=== PATIENT | female | born 1985 | race Two or more races ===

== ENCOUNTER 2017-05-06 12:17 | Inpatient (IN) | payer OTHER ==
[~2017-05-06] VITALS: Ht 162.6 cm; Wt 76.7 kg
[2017-05-06] MEDS ORDERED: PRENATAL TABLE1 EAC3 PO (14:17)
== END 2017-05-08 09:41 | DRG 782 ==
LOC: LDR 12:17 → OB/GYN 16:47
PROC: 4A1HXCZ Monitoring of Products of Conception, Cardiac Rate, External Approach (ICD-10-PCS; principal; 2017-05-06)
PROC: BY4FZZZ Ultrasonography of Third Trimester, Single Fetus (ICD-10-PCS; 2017-05-06)
PROC: BU46ZZZ Ultrasonography of Uterus (ICD-10-PCS; 2017-05-06)
DX: O41.03X0 Oligohydramnios, third trimester, not applicable or unspecified (principal); Z3A.29 29 weeks gestation of pregnancy

== ENCOUNTER 2019-11-13 15:21 | Inpatient (IN) | payer OTHER ==
[~2019-11-13] VITALS: Ht 162.6 cm; Wt 3.2 kg
[~2019-11-13 15:21] MED LIST: PRENATAL TABLE1 EAC3 PO
== END 2019-11-16 17:37 | disposition home or self-care (01) | DRG 787 ==
LOC: SURG-SUITE 15:21 → LDR 15:21 → SURG-SUITE 19:43
PROVIDERS: ADMIT Obstetrics & Gynecology; ATTEND Obstetrics & Gynecology
PROC: 4A1HXCZ Monitoring of Products of Conception, Cardiac Rate, External Approach (ICD-10-PCS; 2019-11-13)
PROC: 10D00Z1 Extraction of Products of Conception, Low, Open Approach (ICD-10-PCS; principal; 2019-11-14)
DX: O60.14X1 Preterm labor third trimester with preterm delivery third trimester, fetus 1 (principal); O41.03X1 Oligohydramnios, third trimester, fetus 1; Z3A.36 36 weeks gestation of pregnancy; Z37.0 Single live birth

== ENCOUNTER 2022-02-16 22:37 | Outpatient (CLI) | payer OTHER | END 2022-02-17 08:19 | disposition home or self-care (01) | LOC: OBS/DEL 22:37 | PROVIDERS: ATTEND Obstetrics & Gynecology | DX: O16.3 Unspecified maternal hypertension, third trimester (principal); Z3A.35 35 weeks gestation of pregnancy ==